=== PATIENT | female | born 1965 | race Caucasian/White ===

== ENCOUNTER → 2016-10-06 | Outpatient (CLI) | payer BC ==
--- NOTE | 2016-10-06 17:56 | REP ---
LEFT HUMERUS, TWO VIEWS: HISTORY: Sprain. There is no acute fracture or dislocation. There is narrowing of the acromioclavicular joint with associated osteophyte formation. Calcification is present superior to the acromioclavicular joint. This represents ligamentous or tendon calcification. IMPRESSION: Degenerative change as described above. Signed by Michael Sher MD 10/06/2016 05:58 P
--- NOTE | 2016-10-06 18:16 | REP ---
LEFT SHOULDER, THREE VIEWS: HISTORY: Sprain. There is no acute fracture or dislocation. There is narrowing of the acromioclavicular joint with associated osteophyte formation. An osteophyte is present on the superolateral humerus. Calcification is present superior to the acromioclavicular joint. This represents ligamentous or tendon calcification. IMPRESSION: Degenerative change as described above. Signed by Michael Sher MD 10/06/2016 06:24 P
== END ==
LOC: M WUC 15:34
PROVIDERS: ATTEND Physician Assistant
DX: S43.402A Unspecified sprain of left shoulder joint, initial encounter (principal); M19.012 Primary osteoarthritis, left shoulder; X58.XXXA Exposure to other specified factors, initial encounter; Y92.89 Other specified places as the place of occurrence of the external cause; Y93.89 Activity, other specified; Y99.8 Other external cause status

== ENCOUNTER → 2017-03-10 | Outpatient (REF) | payer BC ==
[2017-03-10 14:11] LABS: BASO % 0.6 % (0.0-1.0); EOS # 0.1 10^3/uL (0.0-0.50); EOS % 2.2 % (0.0-3.0); IMMATURE GRANULOCYTE % 0.2 % (0-0); LYMPH # 1.6 10^3/uL (1.5-4.5); LYMPH % 30.8 % (24.0-44.0); MEAN CORPUSCULAR HEMOGLOBIN 31.9 pg (27.0-33.0); MEAN CORPUSCULAR HGB CONC 34.3 g/dl (32.0-36.5); MEAN CORPUSCULAR VOLUME 92.9 fl (80.0-96.0); MONO # 0.5 10^3/uL (0.0-0.8); MONO % 9.1 % (0.0-5.0); NEUTROPHILS # 2.9 10^3/uL (1.8-7.7); NEUTROPHILS % 57.1 % (36.0-66.0); PLATELET COUNT, AUTOMATED 284 10^3/uL (150-450); RED CELL DISTRIBUTION WIDTH 12.8 % (11.5-14.5); WHITE BLOOD COUNT 5.1 10^3/uL (4.0-10.0)
[2017-03-10 14:29] LABS: ALBUMIN 3.9 GM/DL (3.2-5.2); ALBUMIN/GLOBULIN RATIO 0.91 (1.00-1.93); ALKALINE PHOSPHATASE 103 U/L (45-117); ALT/SGPT 28 U/L (12-78); ANION GAP 4 MEQ/L (8-16); AST/SGOT 17 U/L (7-37); BILIRUBIN,TOTAL 0.5 MG/DL (0.2-1.0); BLOOD UREA NITROGEN 13 MG/DL (7-18); CALCIUM LEVEL 9.2 MG/DL (8.5-10.1); CARBON DIOXIDE LEVEL 31 MEQ/L (21-32); CHLORIDE LEVEL 102 MEQ/L (98-107); CHOLESTEROL LEVEL 269 MG/DL (<200); CREATININE FOR GFR 0.69 MG/DL (0.55-1.02); GLOMERULAR FILTRATION RATE > 60.0 (>51); GLUCOSE, FASTING 91 MG/DL (70-105); POTASSIUM SERUM 4.1 MEQ/L (3.5-5.1); SODIUM LEVEL 137 MEQ/L (136-145); TOTAL PROTEIN 8.2 GM/DL (6.4-8.2); TRIGLYCERIDES LEVEL 76 MG/DL (<150)
== END ==
LOC: M LAB REF 13:51
PROVIDERS: ATTEND Family Medicine Addiction Medicine
DX: E55.9 Vitamin D deficiency, unspecified (principal); R53.83 Other fatigue; I10 Essential (primary) hypertension

== ENCOUNTER → 2018-03-08 | Outpatient (REF) | payer BC | LOC: M LAB REF 12:31 | DX: R30.0 Dysuria (principal) ==

== ENCOUNTER → 2020-01-18 | Outpatient (REF) | payer BC ==
[2020-01-18 13:51] LABS: C REACTIVE PROTEIN QUANTITATIV < 0.30 MG/DL (0.00-0.30)
[2020-01-18 15:01] LABS: HEPATITIS C VIRUS ABY INDEX > 11.0 INDEX (<0.8)
== END ==
LOC: M LAB REF 12:19
PROVIDERS: ATTEND Nurse Practitioner Adult Health
DX: M25.50 Pain in unspecified joint (principal); L81.8 Other specified disorders of pigmentation

== ENCOUNTER → 2020-01-23 | Outpatient (REF) | payer BC ==
[2020-01-25 23:07] LABS: HEPATITIS C QUANTITATION 2660070 IU/mL (.)
== END ==
LOC: M LAB REF 17:10
PROVIDERS: ATTEND Nurse Practitioner Adult Health
DX: K73.9 Chronic hepatitis, unspecified (principal)

== ENCOUNTER → 2020-03-20 | Outpatient (REF) | payer BC ==
[2020-03-20 18:30] LABS: HEPATITIS B SURFACE ANTIBODY NEGATIVE (POSITIVE); HEPATITIS B SURFACE ANTIGEN NEGATIVE (NEGATIVE); HIV 1&2 SCREEN CENTAUR NEGATIVE (NEGATIVE)
[2020-03-26 00:08] LABS: HEPATITIS A IgG TOTAL Negative (Negative); HEPATITIS B CORE ANTIBODY IGG Negative (Negative); HEPATITIS C VIRUS GENOTYPE 1a (.)
== END ==
LOC: M SFHCPLAZ 14:16
PROVIDERS: ATTEND Internal Medicine Infectious Disease
DX: B18.2 Chronic viral hepatitis C (principal)

== ENCOUNTER → 2020-05-22 | Outpatient (REF) | payer BC ==
[2020-05-22 15:07] LABS: ALBUMIN 4.1 GM/DL (3.2-5.2); BILIRUBIN,DIRECT 0.2 MG/DL (0.0-0.2); BILIRUBIN,TOTAL 0.5 MG/DL (0.2-1.0); TOTAL PROTEIN 7.8 GM/DL (6.4-8.2)
[2020-05-27 13:12] LABS: HEPATITIS C QUANTITATION HCV Not Detected IU/mL (.)
== END ==
LOC: M SFHCPLAZ 11:25
PROVIDERS: ATTEND Internal Medicine Infectious Disease
DX: B18.2 Chronic viral hepatitis C (principal)

== ENCOUNTER → 2020-08-06 | Outpatient (REF) | payer BC ==
[2020-08-08 23:06] LABS: ANTINUCLEAR ANTIBODIES DIRECT Negative (Negative); CYCLIC CITRULLINATED PEPTIDE 1 units (0-19)
== END ==
LOC: M LAB REF 16:20
PROVIDERS: ATTEND Nurse Practitioner Adult Health
DX: M15.0 Primary generalized (osteo)arthritis (principal); K73.9 Chronic hepatitis, unspecified; I73.00 Raynaud's syndrome without gangrene

== ENCOUNTER → 2020-12-30 | Outpatient (CLI) | payer BC ==
[2020-12-30 12:23] LABS: BILIRUBIN,DIRECT 0.2 MG/DL (0.0-0.2); BILIRUBIN,TOTAL 0.5 MG/DL (0.2-1.0); TOTAL PROTEIN 7.6 GM/DL (6.4-8.2)
[2020-12-31 12:08] LABS: HEPATITIS C QUANTITATION HCV Not Detected IU/mL (.)
== END ==
LOC: M PLALAB 08:28
PROVIDERS: ATTEND Internal Medicine Infectious Disease
DX: B18.2 Chronic viral hepatitis C (principal)

== ENCOUNTER → 2021-09-14 | Outpatient (CLI) | payer BC | LOC: M SLEEP HO 13:37 | PROVIDERS: ATTEND Physician Assistant | DX: R40.0 Somnolence (principal) ==

== ENCOUNTER → 2021-09-18 | Outpatient (CLI) | payer BC | LOC: M WUC 10:19 | PROVIDERS: ATTEND Nurse Practitioner Adult Health | DX: M25.552 Pain in left hip (principal) ==

== ENCOUNTER → 2021-10-28 | Outpatient (CLI) | payer BC | LOC: M SLEEP 20:00 | PROVIDERS: ATTEND Physician Assistant | DX: G47.33 Obstructive sleep apnea (adult) (pediatric) (principal) ==

== ENCOUNTER → 2022-02-07 | Outpatient (CLI) | payer BC ==
[~2022-02-07] MED LIST: CELE1CAP7 PO; FAMO40TA3 PO; HYDR12.55 PO; IBUP-1114 PO; LISI40TA4 PO; NIFE30TA50 PO; OMEP40CA4 PO; PRAV20TA2 PO
== END ==
LOC: M LABSMTC 10:10
PROVIDERS: ATTEND Anesthesiology
DX: Z01.812 Encounter for preprocedural laboratory examination (principal); Z20.822 Contact with and (suspected) exposure to COVID-19

== ENCOUNTER 2022-02-11 07:16 | Day surgery (SDC) | payer BC ==
[~2022-02-11] VITALS: Ht 162.6 cm; Wt 95.7 kg
[~2022-02-11 07:16] MED LIST changes: +NS 1,000 ML IV ONE
[2022-02-11] MEDS ORDERED: propofoL 500 MG/50 ML VIAL As Ordered ONE (08:01)
[2022-02-11 09:41] VITALS: BP 131/78
== END 2022-02-11 09:42 | disposition home or self-care (01) ==
LOC: M OPP 07:16
PROVIDERS: ATTEND Surgery
DX: K64.1 Second degree hemorrhoids (principal); K52.9 Noninfective gastroenteritis and colitis, unspecified; K92.1 Melena; K22.89 Other specified disease of esophagus; K29.70 Gastritis, unspecified, without bleeding; Z79.1 Long term (current) use of non-steroidal anti-inflammatories (NSAID); Z79.52 Long term (current) use of systemic steroids; Z79.83 Long term (current) use of bisphosphonates; Z79.899 Other long term (current) drug therapy; Z88.2 Allergy status to sulfonamides; Z88.8 Allergy status to other drugs, medicaments and biological substances; Z91.040 Latex allergy status; G47.30 Sleep apnea, unspecified; E78.00 Pure hypercholesterolemia, unspecified; Z86.19 Personal history of other infectious and parasitic diseases; F17.200 Nicotine dependence, unspecified, uncomplicated

== ENCOUNTER 2022-04-09 14:09 | Emergency (ER) | payer BC ==
[~2022-04-09] VITALS: Ht 162.6 cm; Wt 99.6 kg
[~2022-04-09 14:09] MED LIST changes: -NS 1,000 ML IV ONE
[2022-04-09 14:11] VITALS: BP 143/82
[2022-04-09] MEDS ORDERED: IBUPROFEN 600MG TAB PO ONE (15:25)
[2022-04-09] MEDS ORDERED: HYDR-3713 PO (15:55)
== END 2022-04-09 16:07 | disposition home or self-care (01) ==
LOC: M ED 14:09
DX: S52.502A Unspecified fracture of the lower end of left radius, initial encounter for closed fracture (principal); W19.XXXA Unspecified fall, initial encounter; Y92.512 Supermarket, store or market as the place of occurrence of the external cause; I10 Essential (primary) hypertension; F17.200 Nicotine dependence, unspecified, uncomplicated; F12.10 Cannabis abuse, uncomplicated; Z79.899 Other long term (current) drug therapy; Z88.2 Allergy status to sulfonamides; Z91.040 Latex allergy status

== ENCOUNTER 2022-04-14 11:16 | Observation (INO) | payer BC ==
[~2022-04-14] VITALS: Ht 162.6 cm; Wt 96.6 kg
[2022-04-14] MEDS: NIFEdipine 30MG XL TAB PO SCH (09:00)
[2022-04-14] MEDS: hydroCHLOROthiazide 12.5 MG CAPSULE PO SCH (09:00)
[~2022-04-14 11:16] MED LIST changes: +HYDR-3713 PO
[2022-04-14] MEDS ORDERED: MIDAZOLAM INJ 2MG/2ML VIAL (J2250 PER 1MG) IV PRN (12:00)
[2022-04-14] MEDS ORDERED: EPINEPHrine INJ 1 MG/ML 1ML AMP PN ONE (12:00)
[2022-04-14] MEDS ORDERED: ROPIvacaine 0.5% 30ML VIAL PN ONE (12:00)
[2022-04-14] MEDS ORDERED: fentaNYL 100 MCG/2 ML INJECTION IV PRN (12:00)
[2022-04-14] MEDS ORDERED: LIDOCAINE 1% SDV 5ML VIAL SC PRN (12:10)
[2022-04-14] MEDS ORDERED: LR 1,000 ML IV SCH ×2 (12:10→13:35)
[2022-04-14] MEDS ORDERED: ceFAZolin 2 GM/D5W 50 ML IV BAG As Ordered ONE (12:16)
[2022-04-14] MEDS ORDERED: ceFAZolin SOD 2 GM in IV 1 EA IV ONE (12:25)
[2022-04-14] MEDS ORDERED: propofoL 200 MG/20 ML VIAL As Ordered ONE (12:31)
[2022-04-14] MEDS ORDERED: ONDANSETRON 4MG 2ML VIAL As Ordered ONE (12:49)
[2022-04-14] MEDS ORDERED: fentaNYL 100 MCG/2 ML INJECTION As Ordered ONE (13:00)
[2022-04-14] MEDS ORDERED: BUPIVACAINE HCL 0.5% 30ML VIAL As Ordered ONE (13:18)
[2022-04-14] MEDS ORDERED: ONDANSETRON 4MG 2ML VIAL IV PRN (13:35)
[2022-04-14] MEDS ORDERED: PERCOCET 5MG/325MG TAB PO PRN (13:35)
[2022-04-14] MEDS: fentaNYL 100 MCG/2 ML INJECTION IV PRN ×4 (14:21→14:37)
[2022-04-14] MEDS ORDERED: ACETAMINOPHEN 500 MG TAB PO PRN (15:00)
[2022-04-14] MEDS ORDERED: KETOROLAC 30 MG/ML 1ML VIAL IV ONE (15:00)
[2022-04-14] MEDS ORDERED: KETOROLAC 30 MG/ML 1ML VIAL As Ordered ONE (15:01)
[2022-04-14] MEDS ORDERED: ACETAMINOPHEN 500 MG TAB As Ordered ONE (15:06)
[2022-04-14] MEDS ORDERED: ALBUTEROL SULFATE 2.5 MG/0.5 ML INH NEB SOLN NEB ONE (15:20)
[2022-04-14 18:00] VITALS: BP 140/82
[2022-04-14 18:52] LABS: HEMATOCRIT 35.2 % (36.0-47.0); HEMOGLOBIN 11.9 g/dl (12.0-15.5); MEAN CORPUSCULAR HEMOGLOBIN 32.3 pg (27.0-33.0); MEAN CORPUSCULAR HGB CONC 33.8 g/dl (32.0-36.5); MEAN CORPUSCULAR VOLUME 95.7 fl (80.0-96.0); PLATELET COUNT, AUTOMATED 263 10^3/uL (150-450); RED BLOOD COUNT 3.68 10^6/uL (4.00-5.40); WHITE BLOOD COUNT 8.2 10^3/uL (4.0-10.0)
[2022-04-14] MEDS ORDERED: oxyCODONE 5MG TAB PO PRN ×2 (19:10)
[2022-04-14 19:17] LABS: BLOOD UREA NITROGEN 18 MG/DL (9-23); CARBON DIOXIDE LEVEL 27 MMOL/L (20-31); CHLORIDE LEVEL 104 MMOL/L (98-107); CREATININE FOR GFR 0.91 MG/DL (0.55-1.30); GLOMERULAR FILTRATION RATE > 60.0 (>51); GLUCOSE, FASTING 141 MG/DL (60-100); POTASSIUM SERUM 3.9 MMOL/L (3.5-5.1); SODIUM LEVEL 135 MMOL/L (136-145)
[2022-04-14 19:58] VITALS: BP 135/87
[2022-04-14] MEDS: ACETAMINOPHEN 500 MG TAB PO SCH (21:02)
[2022-04-14 21:07] VITALS: BP 135/86
[2022-04-14] MEDS: FAMOTIDINE 20 MG TAB PO SCH (21:11)
[2022-04-14] MEDS: CelecoXIB (CeleBREX) 100 MG CAP PO SCH (21:11)
[2022-04-14] MEDS: lisinopriL 40MG TAB PO SCH (21:11)
[2022-04-14] MEDS: PRAVASTATIN 20 MG TAB PO SCH (21:11)
[2022-04-14 22:04] VITALS: BP 126/80
[2022-04-14 23:15] VITALS: BP 128/78
[2022-04-15 02:45] VITALS: BP 121/76
[2022-04-15 06:16] VITALS: BP 134/82
[2022-04-15] MEDS: ACETAMINOPHEN 500 MG TAB PO SCH (06:30)
[2022-04-15] MEDS: hydroCHLOROthiazide 12.5 MG CAPSULE PO SCH (07:37)
[2022-04-15] MEDS: PRAVASTATIN 20 MG TAB PO SCH (07:37)
[2022-04-15] MEDS: FAMOTIDINE 20 MG TAB PO SCH (07:37)
[2022-04-15] MEDS: CelecoXIB (CeleBREX) 100 MG CAP PO SCH (07:40)
[2022-04-15 07:41] VITALS: BP 134/82
[2022-04-15] MEDS: NIFEdipine 30MG XL TAB PO SCH (07:41)
[2022-04-15] MEDS: lisinopriL 40MG TAB PO SCH (07:41)
== END 2022-04-15 11:50 | disposition home or self-care (01) ==
LOC: M SDC 11:16 → M ED INP 17:02 → M MS5PR 17:40
PROVIDERS: ADMIT Internal Medicine; ATTEND Orthopaedic Surgery Hand Surgery
DX: S52.552A Other extraarticular fracture of lower end of left radius, initial encounter for closed fracture (principal); W19.XXXA Unspecified fall, initial encounter; G97.82 Other postprocedural complications and disorders of nervous system; G47.33 Obstructive sleep apnea (adult) (pediatric); I10 Essential (primary) hypertension; E78.5 Hyperlipidemia, unspecified; K21.9 Gastro-esophageal reflux disease without esophagitis; Z86.19 Personal history of other infectious and parasitic diseases; Z91.040 Latex allergy status; Z88.2 Allergy status to sulfonamides; Z79.899 Other long term (current) drug therapy; Z79.1 Long term (current) use of non-steroidal anti-inflammatories (NSAID); F17.210 Nicotine dependence, cigarettes, uncomplicated
CPT/HCPCS: 25607; 36415; 76000; 80048; 85027; 87635; C1713; J0690; J1100; J1885; J2250; J2405; J3010

== ENCOUNTER → 2022-04-22 | Outpatient (CLI) | payer BC | LOC: M SOG 10:15 | PROVIDERS: ATTEND Physician Assistant | DX: S52.502A Unspecified fracture of the lower end of left radius, initial encounter for closed fracture (principal); Y92.9 Unspecified place or not applicable; Y93.9 Activity, unspecified ==

== ENCOUNTER → 2022-05-13 | Outpatient (CLI) | payer BC | LOC: M SOG 09:23 | PROVIDERS: ATTEND Physician Assistant | DX: S52.502D Unspecified fracture of the lower end of left radius, subsequent encounter for closed fracture with routine healing (principal); W18.30XD Fall on same level, unspecified, subsequent encounter; Y92.009 Unspecified place in unspecified non-institutional (private) residence as the place of occurrence of the external cause ==

== ENCOUNTER → 2022-06-14 | Outpatient (CLI) | payer BC | LOC: M SOG 09:47 | PROVIDERS: ATTEND Physician Assistant | DX: Z47.89 Encounter for other orthopedic aftercare (principal); M25.632 Stiffness of left wrist, not elsewhere classified ==

== ENCOUNTER → 2022-07-12 | Outpatient (CLI) | payer BC | LOC: M SOG 08:38 | PROVIDERS: ATTEND Physician Assistant | DX: S52.502A Unspecified fracture of the lower end of left radius, initial encounter for closed fracture (principal); W18.30XA Fall on same level, unspecified, initial encounter; Y92.009 Unspecified place in unspecified non-institutional (private) residence as the place of occurrence of the external cause ==

== ENCOUNTER → 2022-08-13 | Outpatient (CLI) | payer BC | LOC: M SOG 13:07 | PROVIDERS: ATTEND Physician Assistant | DX: S52.502D Unspecified fracture of the lower end of left radius, subsequent encounter for closed fracture with routine healing (principal); W18.30XD Fall on same level, unspecified, subsequent encounter; Y92.009 Unspecified place in unspecified non-institutional (private) residence as the place of occurrence of the external cause ==

== ENCOUNTER → 2022-09-10 | Outpatient (CLI) | payer BC ==
[2022-09-10 12:57] LABS: BLOOD UREA NITROGEN 12 MG/DL (9-23); CREATININE FOR GFR 0.77 MG/DL (0.55-1.30); GLOMERULAR FILTRATION RATE > 60.0 (>51)
== END ==
LOC: M WUC 09:44
PROVIDERS: ATTEND Internal Medicine Gastroenterology
DX: K62.89 Other specified diseases of anus and rectum (principal)

== ENCOUNTER → 2022-09-14 | Outpatient (CLI) | payer BC ==
[~2022-09-14] MED LIST changes: +GASTROGRAFIN SOLUTION 30ML As Ordered ONE; +ISOVUE-370 76% 100ML VIAL As Ordered ONE
== END ==
LOC: M RAD 10:44
PROVIDERS: ATTEND Internal Medicine Gastroenterology
DX: R63.4 Abnormal weight loss (principal)

== ENCOUNTER 2022-10-08 09:51 | Day surgery (SDC) | payer BC, MEDICAID ==
[~2022-10-08] VITALS: Ht 162.6 cm; Wt 89.8 kg
[~2022-10-08 09:51] MED LIST changes: -GASTROGRAFIN SOLUTION 30ML As Ordered ONE; -ISOVUE-370 76% 100ML VIAL As Ordered ONE; +NIFE-3 PO; -NIFE30TA50 PO; +NS 1,000 ML IV ONE; +VITA-243 PO; +VITAMIN B3 PO; +VITATAB73 PO
[2022-10-08] MEDS ORDERED: ALBUTEROL SULFATE 2.5MG/0.5ML INH NEB SOLN INH ONE (11:10)
[2022-10-08] MEDS ORDERED: LIDOCAINE 2% 100MG/5ML SDV (FOR ANES.) As Ordered ONE (11:37)
[2022-10-08] MEDS ORDERED: propofoL 200 MG/20 ML VIAL As Ordered ONE ×2 (11:37→12:04)
[2022-10-08] MEDS ORDERED: GLYCOPYRROLATE INJ 0.2 MG/ML 2 ML VIAL As Ordered ONE (11:44)
[2022-10-08] MEDS ORDERED: fentaNYL 100 MCG/2 ML INJECTION As Ordered ONE (12:08)
[2022-10-08 12:21] VITALS: TEMP 97.8
[2022-10-08 12:36] VITALS: BP 170/98; O2SAT 96
== END 2022-10-08 12:47 | disposition home or self-care (01) ==
LOC: M OPP 09:51
PROVIDERS: ATTEND Internal Medicine Gastroenterology
DX: K52.9 Noninfective gastroenteritis and colitis, unspecified (principal); K60.2 Anal fissure, unspecified; K64.4 Residual hemorrhoidal skin tags; K62.4 Stenosis of anus and rectum; I10 Essential (primary) hypertension; E78.00 Pure hypercholesterolemia, unspecified; K21.9 Gastro-esophageal reflux disease without esophagitis; B19.20 Unspecified viral hepatitis C without hepatic coma; M19.90 Unspecified osteoarthritis, unspecified site; J45.909 Unspecified asthma, uncomplicated; G47.30 Sleep apnea, unspecified; F17.210 Nicotine dependence, cigarettes, uncomplicated; N28.9 Disorder of kidney and ureter, unspecified; Z88.2 Allergy status to sulfonamides; Z91.040 Latex allergy status; Z79.899 Other long term (current) drug therapy; Z80.0 Family history of malignant neoplasm of digestive organs
CPT/HCPCS: 45380; 88305; J3010

== ENCOUNTER → 2022-11-04 | Outpatient (REF) | payer OTHER ==
[~2022-11-04] MED LIST changes: -NS 1,000 ML IV ONE
[2022-11-04 17:26] LABS: CA19-9 TUMOR MARKER,CARBOHYDRA 8.2 U/ML (<35.0)
[2022-11-06 23:06] LABS: HEPATITIS C QUANTITATION HCV Not Detected IU/mL (.)
== END ==
LOC: M LAB REF 16:29
PROVIDERS: ATTEND Nurse Practitioner Adult Health
DX: B19.20 Unspecified viral hepatitis C without hepatic coma (principal)

== ENCOUNTER 2022-12-13 15:21 | Outpatient (CLI) | payer OTHER ==
[~2022-12-13] VITALS: Ht 162.6 cm; Wt 88.6 kg
[~2022-12-13 15:21] MED LIST changes: +CURRENT HEIGHT AND WEIGHT NEEDED ON PATIENT XX SCH
[2022-12-13 15:50] VITALS: BP 116/69; O2SAT 100
[2022-12-13] MEDS ORDERED: VEDOLIZUMAB 300 MG in NS 250 ML IV ONE (16:00)
[2022-12-13] MEDS ORDERED: OMEP40CA4 PO (17:03)
[2022-12-13 17:20] VITALS: BP 127/75; O2SAT 96
[2022-12-13 18:05] VITALS: BP 131/82; O2SAT 96
== END 2022-12-13 18:05 ==
LOC: M INFU 15:21
PROVIDERS: ATTEND Internal Medicine Gastroenterology
DX: K51.90 Ulcerative colitis, unspecified, without complications (principal); Z88.2 Allergy status to sulfonamides
CPT/HCPCS: 96365; J3380

== ENCOUNTER 2022-12-27 15:00 | Outpatient (CLI) | payer OTHER ==
[~2022-12-27] VITALS: Ht 162.6 cm; Wt 91.4 kg
[~2022-12-27 15:00] MED LIST changes: -CURRENT HEIGHT AND WEIGHT NEEDED ON PATIENT XX SCH
[2022-12-27 15:03] VITALS: BP 116/63; O2SAT 99
[2022-12-27] MEDS ORDERED: VEDOLIZUMAB 300 MG in NS 250 ML IV ONE (16:00)
[2022-12-27 16:20] VITALS: BP 115/69; O2SAT 98
== END 2022-12-27 16:20 | disposition home or self-care (01) ==
LOC: M INFU 15:00
PROVIDERS: ATTEND Internal Medicine Gastroenterology
DX: K51.90 Ulcerative colitis, unspecified, without complications (principal); Z88.2 Allergy status to sulfonamides
CPT/HCPCS: 96365; J3380

== ENCOUNTER → 2023-02-16 | Outpatient (REF) | payer OTHER ==
[~2023-02-16] MED LIST changes: -CELE1CAP7 PO; +CELE1CAP99 PO
== END ==
LOC: M LAB REF 16:17
PROVIDERS: ATTEND Physician Assistant
DX: R30.0 Dysuria (principal)

== ENCOUNTER 2023-03-21 15:55 | Outpatient (CLI) | payer OTHER ==
[2023-03-21 15:55] VITALS: BP 142/78; O2SAT 99
[2023-03-21 16:00] VITALS: BP 142/78; TEMP 97.6; O2SAT 98
[2023-03-21] MEDS ORDERED: VEDOLIZUMAB 300 MG in NS 250 ML IV ONE (16:00)
[2023-03-21 16:51] VITALS: BP 126/74; O2SAT 98
== END 2023-03-21 16:51 ==
LOC: M INFU 15:55
PROVIDERS: ATTEND Internal Medicine Gastroenterology
DX: K51.90 Ulcerative colitis, unspecified, without complications (principal); Z88.2 Allergy status to sulfonamides
CPT/HCPCS: 96365; J3380

== ENCOUNTER → 2023-07-08 | Outpatient (CLI) | payer OTHER ==
[2023-07-08 18:59] LABS: BASO % 0.4 % (0.0-1.0); EOS # 0.2 10^3/uL (0.0-0.5); EOS % 1.9 % (0.0-3.0); HEMATOCRIT 37.1 % (36.0-47.0); HEMOGLOBIN 12.4 g/dl (12.0-15.5); LYMPH # 1.5 10^3/uL (1.5-5.0); LYMPH % 18.7 % (24.0-44.0); MEAN CORPUSCULAR HEMOGLOBIN 32.3 pg (27.0-33.0); MEAN CORPUSCULAR HGB CONC 33.4 g/dl (32.0-36.5); MEAN CORPUSCULAR VOLUME 96.6 fl (80.0-96.0); MONO # 0.6 10^3/uL (0.0-0.8); NEUTROPHILS # 5.6 10^3/uL (1.5-8.5); NEUTROPHILS % 71.7 % (36.0-66.0); PLATELET COUNT, AUTOMATED 296 10^3/uL (150-450); RED BLOOD COUNT 3.84 10^6/uL (4.00-5.40); WHITE BLOOD COUNT 7.8 10^3/uL (4.0-10.0)
[2023-07-08 19:04] LABS: ERYTHROCYTE SEDIMENTATION RATE 41 mm/hr (0-30)
[2023-07-08 19:23] LABS: IRON (FE) 26 UG/DL (50-170)
[2023-07-08 19:24] LABS: PERCENT SATURATION 8.6 % (13.2-45.0); TOTAL IRON BINDING CAPACITY 303 UG/DL (250-425)
[2023-07-08 19:25] LABS: ALBUMIN 3.4 G/DL (3.2-5.2); ALKALINE PHOSPHATASE 86 U/L (46-116); ALT/SGPT 11 U/L (7.0-40); AST/SGOT 10 U/L (<34); BILIRUBIN,TOTAL 0.4 MG/DL (0.3-1.2); BLOOD UREA NITROGEN 21 MG/DL (9-23); CALCIUM LEVEL 8.5 MG/DL (8.5-10.1); CARBON DIOXIDE LEVEL 27 MMOL/L (20-31); CHLORIDE LEVEL 103 MMOL/L (98-107); CREATININE FOR GFR 1.05 MG/DL (0.55-1.30); GLOMERULAR FILTRATION RATE 57.3 (>51); GLUCOSE, FASTING 104 MG/DL (60-100); POTASSIUM SERUM 4.5 MMOL/L (3.5-5.1); SODIUM LEVEL 134 MMOL/L (136-145); TOTAL PROTEIN 6.7 G/DL (5.7-8.2)
[2023-07-08 19:27] LABS: VITAMIN B12 LEVEL 866 PG/ML (211-911)
== END ==
LOC: M WUC 11:37
PROVIDERS: ATTEND Internal Medicine Gastroenterology
DX: K51.30 Ulcerative (chronic) rectosigmoiditis without complications (principal)

== ENCOUNTER 2023-07-11 15:50 | Outpatient (CLI) | payer OTHER ==
[~2023-07-11] VITALS: Ht 162.6 cm; Wt 81.8 kg
[2023-07-11 15:50] VITALS: BP 122/66; O2SAT 96
[2023-07-11] MEDS: VEDOLIZUMAB 300 MG in NS 250 ML IV ONE (16:16)
[2023-07-11 16:59] VITALS: BP 119/79; O2SAT 98
== END 2023-07-11 17:00 ==
LOC: M INFU 15:50
PROVIDERS: ATTEND Internal Medicine Gastroenterology
DX: K51.919 Ulcerative colitis, unspecified with unspecified complications (principal); Z88.2 Allergy status to sulfonamides
CPT/HCPCS: 96365; J3380

== ENCOUNTER → 2023-07-12 | Outpatient (CLI) | payer OTHER | LOC: M WUC 11:29 | PROVIDERS: ATTEND Nurse Practitioner Family | DX: M25.562 Pain in left knee (principal) ==

== ENCOUNTER → 2023-07-27 | Outpatient (CLI) | payer OTHER | LOC: M RAD 11:33 | PROVIDERS: ATTEND Physician Assistant | DX: M79.605 Pain in left leg (principal) ==

== ENCOUNTER 2023-09-05 15:31 | Outpatient (CLI) | payer OTHER ==
[~2023-09-05] VITALS: Ht 162.6 cm; Wt 85.0 kg
[2023-09-05 15:44] VITALS: BP 161/89; O2SAT 96
[2023-09-05] MEDS: VEDOLIZUMAB 300 MG in NS 250 ML IV ONE (15:55)
== END 2023-09-05 16:32 | disposition home or self-care (01) ==
LOC: M INFU 15:31
PROVIDERS: ATTEND Internal Medicine Gastroenterology
DX: K51.919 Ulcerative colitis, unspecified with unspecified complications (principal); Z88.2 Allergy status to sulfonamides; Z91.040 Latex allergy status
CPT/HCPCS: 96365; J3380

== ENCOUNTER 2023-10-31 15:50 | Outpatient (CLI) | payer OTHER ==
[2023-10-31 16:00] VITALS: BP 136/82; O2SAT 100
[2023-10-31] MEDS: VEDOLIZUMAB 300 MG in NS 250 ML IV ONE (16:03)
[2023-10-31 16:40] VITALS: BP 151/87; O2SAT 99
== END 2023-10-31 16:40 | disposition home or self-care (01) ==
LOC: M INFU 15:50
PROVIDERS: ATTEND Internal Medicine Gastroenterology
DX: K51.90 Ulcerative colitis, unspecified, without complications (principal); Z88.2 Allergy status to sulfonamides; Z91.040 Latex allergy status
CPT/HCPCS: 96365; J3380

== ENCOUNTER → 2023-11-07 | Outpatient (CLI) | payer OTHER ==
[2023-11-07 10:07] LABS: BASO % 0.6 % (0.0-1.0); EOS # 0.1 10^3/uL (0.0-0.5); EOS % 1.3 % (0.0-3.0); HEMATOCRIT 35.4 % (36.0-47.0); HEMOGLOBIN 12.1 g/dl (12.0-15.5); LYMPH # 1.3 10^3/uL (1.5-5.0); LYMPH % 20.5 % (24.0-44.0); MEAN CORPUSCULAR HEMOGLOBIN 32.5 pg (27.0-33.0); MEAN CORPUSCULAR HGB CONC 34.2 g/dl (32.0-36.5); MEAN CORPUSCULAR VOLUME 95.2 fl (80.0-96.0); MONO # 0.4 10^3/uL (0.0-0.8); MONO % 6.6 % (2.0-8.0); NEUTROPHILS # 4.5 10^3/uL (1.5-8.5); NEUTROPHILS % 70.7 % (36.0-66.0); PLATELET COUNT, AUTOMATED 337 10^3/uL (150-450); RED BLOOD COUNT 3.72 10^6/uL (4.00-5.40); WHITE BLOOD COUNT 6.4 10^3/uL (4.0-10.0)
[2023-11-07 10:12] LABS: ERYTHROCYTE SEDIMENTATION RATE 30 mm/hr (0-30)
[2023-11-07 10:33] LABS: ALKALINE PHOSPHATASE 89 U/L (46-116); ALT/SGPT 13 U/L (7.0-40); AST/SGOT 9 U/L (<34); BILIRUBIN,TOTAL 0.4 MG/DL (0.3-1.2); BLOOD UREA NITROGEN 17 MG/DL (9-23); C REACTIVE PROTEIN QUANTITATIV < 0.40 MG/DL (<1.0); CALCIUM LEVEL 9.5 MG/DL (8.5-10.1); CARBON DIOXIDE LEVEL 28 MMOL/L (20-31); CHLORIDE LEVEL 98 MMOL/L (98-107); GLOMERULAR FILTRATION RATE > 60.0 (>51); GLUCOSE, FASTING 81 MG/DL (60-100); POTASSIUM SERUM 4.8 MMOL/L (3.5-5.1); RHEUMATOID FACTOR QUANT < 3.5 IU/ML (<14); SODIUM LEVEL 129 MMOL/L (136-145); TOTAL PROTEIN 7.4 G/DL (5.7-8.2)
[2023-11-08 13:56] LABS: ANA SCREEN, IFA NEGATIVE (NEGATIVE)
== END ==
LOC: M RAD 09:14
PROVIDERS: ATTEND Physician Assistant
DX: M25.562 Pain in left knee (principal)

== ENCOUNTER 2023-12-26 15:40 | Outpatient (CLI) | payer OTHER ==
[~2023-12-26] VITALS: Ht 162.6 cm; Wt 91.4 kg
[2023-12-26 15:40] VITALS: BP 132/76; O2SAT 96
[2023-12-26] MEDS: VEDOLIZUMAB 300 MG in NS 250 ML IV ONE (16:00)
[2023-12-26 16:37] VITALS: BP 120/72; O2SAT 95
== END 2023-12-26 16:35 ==
LOC: M INFU 15:40
PROVIDERS: ATTEND Internal Medicine Gastroenterology
DX: K51.90 Ulcerative colitis, unspecified, without complications (principal); Z88.2 Allergy status to sulfonamides; Z91.040 Latex allergy status
CPT/HCPCS: 96365; J3380

== ENCOUNTER → 2023-12-28 | Outpatient (REF) | payer OTHER ==
[~2023-12-28] MED LIST changes: +IBUP-1730 PO; +MELO15TA28 PO; +OMEP40CA5 PO
[2023-12-28 17:52] LABS: CA19-9 TUMOR MARKER,CARBOHYDRA 4.2 U/ML (<35.0)
== END ==
LOC: M LAB REF 16:23
PROVIDERS: ATTEND Physician Assistant Medical
DX: B19.20 Unspecified viral hepatitis C without hepatic coma (principal)

== ENCOUNTER 2023-12-29 13:26 | Observation (INO) | payer OTHER ==
[~2023-12-29] VITALS: Ht 162.6 cm; Wt 86.5 kg
[~2023-12-29 13:26] MED LIST changes: -IBUP-1730 PO; -MELO15TA28 PO; -OMEP40CA5 PO
[2023-12-29] MEDS ORDERED: MELO15TA28 PO (14:25)
[2023-12-29 14:27] LABS: BASO % 0.5 % (0.0-1.0); EOS # 0.1 10^3/uL (0.0-0.5); EOS % 0.9 % (0.0-3.0); HEMATOCRIT 35.3 % (36.0-47.0); HEMOGLOBIN 12.4 g/dl (12.0-15.5); LYMPH # 1.5 10^3/uL (1.5-5.0); LYMPH % 17.6 % (24.0-44.0); MEAN CORPUSCULAR HEMOGLOBIN 32.9 pg (27.0-33.0); MEAN CORPUSCULAR HGB CONC 35.1 g/dl (32.0-36.5); MEAN CORPUSCULAR VOLUME 93.6 fl (80.0-96.0); MONO # 0.6 10^3/uL (0.0-0.8); MONO % 7.3 % (2.0-8.0); NEUTROPHILS % 73.2 % (36.0-66.0); PLATELET COUNT, AUTOMATED 328 10^3/uL (150-450); RED BLOOD COUNT 3.77 10^6/uL (4.00-5.40); WHITE BLOOD COUNT 8.2 10^3/uL (4.0-10.0)
[2023-12-29 14:40] LABS: ETHYL ALCOHOL (ETHANOL) 0.005 % (0.000-0.010)
[2023-12-29 14:41] LABS: SALICYLATE LEVEL < 3.0 MG/DL (<30)
[2023-12-29 14:42] LABS: ALBUMIN 4.3 G/DL (3.2-5.2); ALKALINE PHOSPHATASE 90 U/L (46-116); ALT/SGPT 16 U/L (7.0-40); AST/SGOT 14 U/L (<34); BILIRUBIN,DIRECT 0.2 MG/DL (<0.4); BILIRUBIN,TOTAL 0.7 MG/DL (0.3-1.2); BLOOD UREA NITROGEN 16 MG/DL (9-23); CARBON DIOXIDE LEVEL 27 MMOL/L (20-31); CHLORIDE LEVEL 93 MMOL/L (98-107); CK-MB VALUE MASS 1.6 NG/ML (<3.6); CREATININE FOR GFR 1.14 MG/DL (0.55-1.30); GLOMERULAR FILTRATION RATE 52.1 (>51); GLUCOSE, FASTING 103 MG/DL (60-100); POTASSIUM SERUM 4.5 MMOL/L (3.5-5.1); SODIUM LEVEL 123 MMOL/L (136-145); TOTAL PROTEIN 7.9 G/DL (5.7-8.2)
[2023-12-29 14:43] LABS: THYROID STIMULATING HORMONE 1.118 uIU/ML (0.55-4.78)
[2023-12-29 14:44] LABS: FREE T4 1.37 NG/DL (0.89-1.76)
[2023-12-29 14:46] LABS: CPK CREATINE PHOSPHOKINASE 81 U/L (34-145); MB/CK RELATIVE INDEX 1.97 (< OR =4)
[2023-12-29 15:00] LABS: OSMOLALITY SERUM 272 MOSM/KG (275-295)
[2023-12-29] MEDS ORDERED: LORazepam 2 MG TAB PO PRN (15:45)
[2023-12-29] MEDS ORDERED: ONDANSETRON 4MG 2ML VIAL IV PRN (15:50)
[2023-12-29] MEDS: NS 1,000 ML IV SCH (15:54)
[2023-12-29] MEDS ORDERED: OMEP40CA5 PO (16:20)
[2023-12-29] MEDS ORDERED: IBUP-1730 PO (16:20)
[2023-12-29] MEDS ORDERED: HOME MED LIST COMPLETE! XX SCH (16:25)
[2023-12-29] MEDS: THIAMINE 100 MG TAB PO SCH (16:38)
[2023-12-29] MEDS: PANTOPRAZOLE 40MG VIAL IV SCH (16:38)
[2023-12-29] MEDS: MULTIVITAMINS/MINERALS THERAP 1 TAB PO SCH (16:38)
[2023-12-29] MEDS: FOLIC ACID 1MG TAB PO SCH (16:38)
[2023-12-29 16:44] LABS: AMPHETAMINES LEVEL URINE NEGATIVE (NEGATIVE); BARBITURATES URINE NEGATIVE (NEGATIVE); BENZODIAZEPINES URINE NEGATIVE (NEGATIVE); COCAINE METABOLITE URINE NEGATIVE (NEGATIVE); METHADONE URINE NEGATIVE (NEGATIVE); OPIATES URINE NEGATIVE (NEGATIVE); PHENCYCLIDINE URINE NEGATIVE (NEGATIVE)
[2023-12-29 16:46] LABS: CREATININE,RANDOM URINE 139.6 MG/DL
[2023-12-29 16:47] LABS: CANNABINOIDS URINE POSITIVE (NEGATIVE)
[2023-12-29] MEDS: SENOKOT S TAB PO SCH (20:57)
[2023-12-29 21:57] VITALS: BP 111/75; TEMP 97.7; O2SAT 96
[2023-12-29 22:00] VITALS: BP 111/75
[2023-12-30 04:54] VITALS: BP 114/75; TEMP 97.2; O2SAT 97
[2023-12-30 07:05] LABS: BASO % 0.6 % (0.0-1.0); EOS # 0.1 10^3/uL (0.0-0.5); HEMATOCRIT 34.3 % (36.0-47.0); LYMPH # 1.1 10^3/uL (1.5-5.0); LYMPH % 19.7 % (24.0-44.0); MEAN CORPUSCULAR HEMOGLOBIN 33.2 pg (27.0-33.0); MONO # 0.4 10^3/uL (0.0-0.8); MONO % 7.8 % (2.0-8.0); NEUTROPHILS # 3.7 10^3/uL (1.5-8.5); NEUTROPHILS % 69.7 % (36.0-66.0); PLATELET COUNT, AUTOMATED 298 10^3/uL (150-450); RED BLOOD COUNT 3.61 10^6/uL (4.00-5.40); WHITE BLOOD COUNT 5.4 10^3/uL (4.0-10.0)
[2023-12-30 07:19] LABS: BLOOD UREA NITROGEN 14 MG/DL (9-23); CALCIUM LEVEL 9.7 MG/DL (8.5-10.1); CARBON DIOXIDE LEVEL 26 MMOL/L (20-31); CHLORIDE LEVEL 100 MMOL/L (98-107); CREATININE FOR GFR 0.78 MG/DL (0.55-1.30); GLOMERULAR FILTRATION RATE > 60.0 (>51); GLUCOSE, FASTING 91 MG/DL (60-100); POTASSIUM SERUM 4.4 MMOL/L (3.5-5.1); SODIUM LEVEL 129 MMOL/L (136-145)
[2023-12-30] MEDS: ENOXAPARIN 40MG/0.4ML SYRINGE (J1650 PER 10MG) SC SCH (09:00)
[2023-12-30] MEDS ORDERED: MIRA3350 PO (09:36)
[2023-12-30] MEDS ORDERED: SENN-52 PO (09:36)
[2023-12-30 10:23] VITALS: BP 108/70
== END 2023-12-30 11:20 | disposition home or self-care (01) ==
LOC: M ED 13:26 → M ED INP 13:27 → M MS5PR 21:57
PROVIDERS: ADMIT Internal Medicine; ATTEND Internal Medicine
DX: E87.1 Hypo-osmolality and hyponatremia (principal); R53.1 Weakness; R11.0 Nausea; R63.8 Other symptoms and signs concerning food and fluid intake; I12.9 Hypertensive chronic kidney disease with stage 1 through stage 4 chronic kidney disease, or unspecified chronic kidney disease; E78.5 Hyperlipidemia, unspecified; K51.90 Ulcerative colitis, unspecified, without complications; G47.33 Obstructive sleep apnea (adult) (pediatric); E66.9 Obesity, unspecified; Z86.19 Personal history of other infectious and parasitic diseases; N18.9 Chronic kidney disease, unspecified; F17.210 Nicotine dependence, cigarettes, uncomplicated; Z98.890 Other specified postprocedural states; Z82.49 Family history of ischemic heart disease and other diseases of the circulatory system; Z91.040 Latex allergy status; Z88.2 Allergy status to sulfonamides; Z79.899 Other long term (current) drug therapy
CPT/HCPCS: 36415; 70450; 71045; 74018; 80047; 80048; 80076; 80143; 80307; 81001; 82077; 82140; 82550; 82553; 82570; 83605; 83930; 83935; 84295; 84300; 84439; 84443; 84484; 85025; 87086; 93005; 93041; 94760; 96374; 96376; 99285; J2470

== ENCOUNTER → 2024-02-12 | Outpatient (REF) | payer OTHER ==
[~2024-02-12] MED LIST changes: +IBUP-1730 PO; +MELO15TA28 PO; +MIRA3350 PO; +OMEP40CA5 PO; +SENN-52 PO
== END ==
LOC: M LAB REF 20:02
PROVIDERS: ATTEND Physician Assistant
DX: J44.1 Chronic obstructive pulmonary disease with (acute) exacerbation (principal)

== ENCOUNTER → 2024-02-21 | Outpatient (CLI) | payer OTHER | LOC: M WUC 15:11 | PROVIDERS: ATTEND Physician Assistant | DX: J44.1 Chronic obstructive pulmonary disease with (acute) exacerbation (principal) ==

== ENCOUNTER → 2024-04-03 | Outpatient (REF) | payer OTHER | LOC: M LAB REF 16:33 | PROVIDERS: ATTEND Physician Assistant Medical | DX: E87.1 Hypo-osmolality and hyponatremia (principal) ==

== ENCOUNTER 2024-04-27 12:31 | Outpatient (CLI) | payer OTHER ==
[~2024-04-27] VITALS: Ht 162.6 cm; Wt 86.4 kg
[2024-04-27 12:45] VITALS: BP 147/82; O2SAT 95
[2024-04-27] MEDS: VEDOLIZUMAB 300 MG in NS 250 ML IV ONE (13:55)
[2024-04-27 14:35] VITALS: BP 141/90; O2SAT 96
== END 2024-04-27 14:35 ==
LOC: M INFU 12:31
PROVIDERS: ATTEND Internal Medicine Gastroenterology
DX: K51.90 Ulcerative colitis, unspecified, without complications (principal); Z88.2 Allergy status to sulfonamides; Z91.040 Latex allergy status
CPT/HCPCS: 96365; J3380

== ENCOUNTER 2024-05-17 04:51 | Emergency (ER) | payer OTHER ==
[~2024-05-17] VITALS: Ht 162.6 cm; Wt 84.0 kg
[2024-05-17 04:57] VITALS: TEMP 98.1
[2024-05-17 09:04] LABS: HEMATOCRIT 39.2 % (36.0-47.0); HEMOGLOBIN 13.7 g/dl (12.0-15.5); MEAN CORPUSCULAR HEMOGLOBIN 33.1 pg (27.0-33.0); MEAN CORPUSCULAR HGB CONC 34.9 g/dl (32.0-36.5); MEAN CORPUSCULAR VOLUME 94.7 fl (80.0-96.0); PLATELET COUNT, AUTOMATED 305 10^3/uL (150-450); RED BLOOD COUNT 4.14 10^6/uL (4.00-5.40); WHITE BLOOD COUNT 7.5 10^3/uL (4.0-10.0)
[2024-05-17 09:27] LABS: ETHYL ALCOHOL (ETHANOL) 0.035 % (0.000-0.010)
[2024-05-17 09:29] LABS: BLOOD UREA NITROGEN 13 MG/DL (9-23); CALCIUM LEVEL 9.9 MG/DL (8.5-10.1); CARBON DIOXIDE LEVEL 27 MMOL/L (20-31); CHLORIDE LEVEL 98 MMOL/L (98-107); CREATININE FOR GFR 0.78 MG/DL (0.55-1.30); GLOMERULAR FILTRATION RATE > 60.0 (>51); GLUCOSE, FASTING 78 MG/DL (60-100); POTASSIUM SERUM 4.4 MMOL/L (3.5-5.1); SODIUM LEVEL 133 MMOL/L (136-145)
[2024-05-17] MEDS: MORPHINE 2 MG/ML 1ML VIAL IV ONE (09:35)
[2024-05-17] MEDS: KETOROLAC 30 MG/ML 1ML VIAL IV ONE (09:44)
[2024-05-17] MEDS: ONDANSETRON 4MG 2ML VIAL IV ONE (09:44)
[2024-05-17] MEDS ORDERED: MIRA3350 PO (10:24)
[2024-05-17] MEDS ORDERED: HYDR-3713 PO (10:24)
[2024-05-17 10:44] VITALS: BP 139/95; O2SAT 95
== END 2024-05-17 10:47 | disposition home or self-care (01) ==
LOC: M ED 04:51
DX: S52.501A Unspecified fracture of the lower end of right radius, initial encounter for closed fracture (principal); Y92.9 Unspecified place or not applicable; Y93.9 Activity, unspecified; Y99.9 Unspecified external cause status; W10.8XXA Fall (on) (from) other stairs and steps, initial encounter; I10 Essential (primary) hypertension; E78.5 Hyperlipidemia, unspecified; K21.9 Gastro-esophageal reflux disease without esophagitis; F17.210 Nicotine dependence, cigarettes, uncomplicated; F10.10 Alcohol abuse, uncomplicated; Z88.2 Allergy status to sulfonamides; Z91.040 Latex allergy status; Z79.1 Long term (current) use of non-steroidal anti-inflammatories (NSAID); Z79.899 Other long term (current) drug therapy
CPT/HCPCS: 29125; 73110; 80048; 82077; 85027; 86850; 86900; 86901; 96374; 99284; J1885; J2405

== ENCOUNTER 2024-05-25 07:27 | Day surgery (SDC) | payer OTHER ==
[~2024-05-25] VITALS: Ht 162.6 cm; Wt 84.5 kg
[~2024-05-25 07:27] MED LIST changes: +B-12100010 PO; +ENTY1INJ IV; +EQL50TAB2 PO; +NIFE1TAB51 PO; +OMEP-173 PO; +VENTAER INH; +VITA100093 PO
[2024-05-25] MEDS ORDERED: MIDAZOLAM INJ 2MG/2ML VIAL As Ordered ONE (08:11)
[2024-05-25] MEDS ORDERED: LIDOCAINE 2% 100MG/5ML SDV (FOR ANES.) As Ordered ONE (08:11)
[2024-05-25] MEDS ORDERED: fentaNYL 100 MCG/2 ML INJECTION As Ordered ONE (08:11)
[2024-05-25] MEDS ORDERED: ONDANSETRON 4MG 2ML VIAL As Ordered ONE (08:11)
[2024-05-25] MEDS ORDERED: propofoL 200 MG/20 ML VIAL As Ordered ONE (08:11)
[2024-05-25] MEDS ORDERED: NS (Normal Saline) 0.9% 1,000 ML IV SCH ×2 (08:40→10:00)
[2024-05-25] MEDS ORDERED: ceFAZolin 2 GM/D5W 50 ML IV BAG As Ordered ONE (08:56)
[2024-05-25] MEDS ORDERED: PHENYLephrine 500MCG 5ML (100MCG/ML) SYRINGE As Ordered ONE (09:09)
[2024-05-25] MEDS ORDERED: ACETAMINOPHEN 1000MG/100ML IV BAG As Ordered ONE (09:29)
[2024-05-25] MEDS ORDERED: OXYC1TAB23 PO (10:09)
[2024-05-25] MEDS: fentaNYL 100 MCG/2 ML INJECTION IV PRN (10:15)
[2024-05-25] MEDS ORDERED: ceFAZolin SOD 2 GM in IV 1 EA IV ONE (10:30)
[2024-05-25] MEDS: HYDROMORPHONE HCL 0.5 MG/ 0.5 ML SYRINGE IV PRN (10:39)
[2024-05-25] MEDS: oxyCODONE 5MG TAB PO PRN (10:39)
[2024-05-25] MEDS: ONDANSETRON 4MG 2ML VIAL IV PRN (11:40)
[2024-05-25 12:23] VITALS: BP 158/82; TEMP 97.8; O2SAT 95
== END 2024-05-25 12:48 | disposition home or self-care (01) ==
LOC: M SDC 07:27
PROVIDERS: ATTEND Orthopaedic Surgery
DX: S52.571A Other intraarticular fracture of lower end of right radius, initial encounter for closed fracture (principal); W01.0XXA Fall on same level from slipping, tripping and stumbling without subsequent striking against object, initial encounter; Y92.9 Unspecified place or not applicable; Y93.01 Activity, walking, marching and hiking; Y99.9 Unspecified external cause status; I10 Essential (primary) hypertension; G47.33 Obstructive sleep apnea (adult) (pediatric); E78.00 Pure hypercholesterolemia, unspecified; Z79.899 Other long term (current) drug therapy; Z88.2 Allergy status to sulfonamides; Z88.8 Allergy status to other drugs, medicaments and biological substances; Z91.040 Latex allergy status
CPT/HCPCS: 25609; 76000; C1713; J0131; J0665; J0690; J1100; J1171; J2250; J2371; J2405; J3010

== ENCOUNTER → 2024-06-11 | Outpatient (CLI) | payer OTHER ==
[~2024-06-11] MED LIST changes: +OXYC1TAB23 PO
== END ==
LOC: M SOG 07:53
PROVIDERS: ATTEND Orthopaedic Surgery
DX: S52.571A Other intraarticular fracture of lower end of right radius, initial encounter for closed fracture (principal); W18.30XA Fall on same level, unspecified, initial encounter; Y92.009 Unspecified place in unspecified non-institutional (private) residence as the place of occurrence of the external cause

== ENCOUNTER → 2024-06-13 | Outpatient (CLI) | payer OTHER | LOC: M WUC 10:46 | PROVIDERS: ATTEND Student in an Organized Health Care Education/Training Program | DX: R06.02 Shortness of breath (principal); J44.1 Chronic obstructive pulmonary disease with (acute) exacerbation ==

== ENCOUNTER → 2024-06-21 | Outpatient (CLI) | payer OTHER | LOC: M WUC 10:34 | PROVIDERS: ATTEND Nurse Practitioner Adult Health | DX: J02.9 Acute pharyngitis, unspecified (principal) ==

== ENCOUNTER → 2024-07-11 | Outpatient (CLI) | payer OTHER | LOC: M SOG 07:47 | PROVIDERS: ATTEND Orthopaedic Surgery | DX: S52.571A Other intraarticular fracture of lower end of right radius, initial encounter for closed fracture (principal); W18.30XA Fall on same level, unspecified, initial encounter; Y92.009 Unspecified place in unspecified non-institutional (private) residence as the place of occurrence of the external cause ==